=== PATIENT | female | born 1955 | race Caucasian/White ===

== ENCOUNTER 2016-08-01 08:33 | Emergency (ER) | payer BC ==
[~2016-08-01] VITALS: Ht 167.6 cm; Wt 113.5 kg
[~2016-08-01 08:33] MED LIST: ALPR0.5T78 PO; ASPI-611 PO; FISH1CAP29 PO; NADO20TA PO
[2016-08-01 08:35] VITALS: Ht 167.6 cm; Wt 113.5 kg
--- OUTSIDE RECORDS SUMMARY | 2016-08-01 08:37 | XMS REPORT | Referral Summary ---
Author Author [facility], [facility] Organization [facility] Address Unknown Phone Unavailable Care Team Providers Care Aboriginal Liaison Officer Name Role Phone Xiomara Cabrales Primary Care Physician [phone] Encounter VC Date(s): 01/15/16 - 01/15/16 [facility], [address] [place] [address]- Discharge Disposition: 01-Home or Self Care Attending Physician: Marcy Cabrales DO Admitting Physician: Marcy Cabrales DO Vital Signs Most recent to 1 oldest [Reference Range]: Temperature Tympanic 36.9 degC [36.6-38.1 degC] (01/15/16 10:23 AM) Peripheral Pulse 65 bpm Rate [60-100 bpm] (01/15/16 10:23 AM) Respiratory Rate 16 br/min [14-20 br/min] (01/15/16 10:23 AM) Blood Pressure 138/78 mmHg [90-140/60-90 mmHg] (01/15/16 10:23 AM) SpO2 98 % (01/15/16 10:23 AM) Problem List Condition Effective Dates Status Health Status Informant Abnormal Pap smear Active of cervix(Confirmed) Anemia(Confirmed) Resolved Anxiety(Confirmed) Active Diabetes(Confirmed)1 Resolved Hip fracture, Active right(Confirmed) Hypertension(Confirm Resolved ed) Inappropriate sinus Active tachycardia(Confirme d) Incomplete Active RBBB(Confirmed) Irregular heart Resolved rhythm(Confirmed) Mammogram abnormal, Active unspecified(Confirme d) Morbid Active patient obesity(Confirmed) Obesity(Confirmed) Active patient Osteoarthritis(Confi Resolved rmed) 1type 2 Allergies, Adverse Reactions, Alerts No Known Medication Allergies Medications aspirin 81 mg oral tablet 2 tabs, Oral, Daily, # 30 tabs, 0 Refill(s) Start Date: 10/27/13 Status: Ordered CONTOUR TEST STRIPS CONTOUR TEST STRIPS, See Instructions, Check blood sugar two times a day. DX: E11.9, # 100 Each, 0 Refill(s), Pharmacy: [facility] #[id number], Check blood sugar two times a day. DX: E11.9 Start Date: 12/13/15 Status: Ordered Glucometer strips (DME) DME Item Contour Art One Test Strips - check blood sugar BID. DX: 250.00, See Instructions, # 100 Each, 0 Refill(s), Pharmacy: [facility] #[id number], Contour Art One Test Strips - check blood sugar BID. DX: 250.00, Supply Start Date: 06/27/14 Status: Ordered metFORMIN 500 mg oral tablet, extended release See Instructions, TAKE ONE TABLET BY MOUTH DAILY WITH EVENING MEAL., # 90 tabs, eRx: [facility] #[id number], TAKE ONE TABLET BY MOUTH DAILY WITH EVENING MEAL. Start Date: 11/29/15 Status: Ordered Miscellaneous DME DME Item Art Contour Blood Glucose Monitoring System, See Instructions, # 1 Each, 0 Refill(s), Supply Start Date: 06/27/14 Status: Ordered nadolol 20 mg oral tablet See Instructions, TAKE ONE TABLET BY MOUTH EVERY DAY, # 30 tabs, 4 Refill(s), eRx: [facility] #[id number], TAKE ONE TABLET BY MOUTH EVERY DAY Start Date: 04/16/15 Status: Ordered Saxenda 18 mg/3 mL subcutaneous solution 0.6 mg, SubCutaneous, Daily, # 15 mL, 0 Refill(s), samples given to patient (Rx) Start Date: 01/15/16 Status: Ordered Xanax 0.5 mg oral tablet See Instructions, as needed for anxiety, Take 1-2 tablets daily as needed., # 30 tabs, 0 Refill(s) Start Date: 05/29/15 Status: Ordered Results Chemistry Most recent to 1 oldest [Reference Range]: Sodium Lvl [135-144 141 mEq/L mEq/L] (01/15/16 11:33 AM) Potassium Lvl 5.0 mEq/L [3.5-5.2 mEq/L] (01/15/16 11:33 AM) Chloride [99-111 107 mEq/L mEq/L] (01/15/16 11:33 AM) CO2 [22-31 mEq/L] 28 mEq/L (01/15/16 11:33 AM) AGAP [3-20] 6 (01/15/16 11:33 AM) BUN [10-20 mg/dL] 20 mg/dL (01/15/16 11:33 AM) Glucose Lvl [70-99 128 mg/dL mg/dL] *HI* (01/15/16 11:33 AM) Creatinine Lvl 0.75 mg/dL [0.57-1.11 mg/dL] (01/15/16 11:33 AM) eGFR [>60 mL/min] >60 mL/min 1 (01/15/16 11:33 AM) Calcium Lvl 9.2 mg/dL [8.9-10.5 mg/dL] (01/15/16 11:33 AM) Chol [0-199 mg/dL] 175 mg/dL (01/15/16 11:33 AM) Trig [0-149 mg/dL] 86 mg/dL (01/15/16 11:33 AM) HDL [40-84 mg/dL] 44 mg/dL (01/15/16 11:33 AM) LDL [0-130 mg/dL] 114 mg/dL (01/15/16 11:33 AM) VLDL Cholesterol 17 mg/dL [0-28 mg/dL] (01/15/16 11:33 AM) Cardiac Risk 4.0 [0.0-5.0] (01/15/16 11:33 AM) Hgb A1c [4.1-5.6 %] 5.8 % *HI* (01/15/16 11:33 AM) eAvg Glucose 119.8 mg/dL (01/15/16 11:33 AM) 1Result Comment: Multiply eGFR results by 1.21 for race. Immunizations Vaccine Date Refusal Reason influenza virus vaccine, inactivated 01/15/16 influenza virus vaccine, inactivated 03/01/15 influenza virus vaccine, inactivated1 03/02/14 influenza virus vaccine, live 02/25/13 tetanus/diphtheria/pertussis, acel(Tdap) 06/01/12 tetanus-diphth toxoids (Td) adult/adol 11/27/97 zoster vaccine live 06/07/14 1Result Comment: [03/02/2014] See Scanned Document Procedures Procedure Date Related Diagnosis Body Site Pap smear, as part of routine gynecological 06/12/15 examination1 Mammogram 06/11/15 D&C - Dilatation and curettage 2013 Hysteroscopy 2013 Colonoscopy2, 3 08/06/07 Hemiarthroplasty of head of humerus4 2005 Knee replacement5 2003 Laser surgery6 1995 Cholecystectomy 1991 Tubal ligation7 1978 delivery8 1had repeat PAP on 11-19-12 due to previous abnormal PAP 2repeat in 10 [id number] 3colonoscopy w/cancer surveillance showing no evidence for angiodysplastic lesions, polyps, diverticula, or malignancies. 4right [place] 5left 6left eye - retinal hole 7bilateral 8x2 Social History Social History Type Response Smoking Status Former smoker; Type: Cigarettes Assessment and Plan Extracted from: Title: Ambulatory Patient Education Author: Marcy Cabrales DO Date: Home Health Care Tips for Eating Away From Home If You Have Diabetes Controlling your level of blood glucose, also known as blood sugar, can be challenging. It can be even more difficult when you do not prepare your own meals. The following tips can help you manage your diabetes when you eat away from home. PLANNING AHEAD Plan ahead if you know you will be eating away from home: Ask your health care provider how to time meals and medicine if you are taking insulin. Make a list of restaurants near you that offer healthy choices. If they have a carry-out menu, take it home and plan what you will order ahead of time. Look up the restaurant you want to eat at online. Many chain and fast- food restaurants list nutritional information online. Use this information to choose the healthiest options and to calculate how many carbohydrates will be in your meal. Use a carbohydrate-counting book or mobile alhaji to look up the carbohydrate content and serving size of the foods you want to eat. Become familiar with serving sizes and learn to recognize how many servings are in a portion. This will allow you to estimate how many carbohydrates you can eat. FREE FOODS A "free food" is any food or drink that has less than 5 g of carbohydrates per serving. Free foods include: Many vegetables. Hard boiled eggs. Nuts or seeds. Olives. Cheeses. Meats. These types of foods make good appetizer choices and are often available at salad bars. Lemon juice, vinegar, or a low-calorie salad dressing of fewer than 20 calories per serving can be used as a "free" salad dressing. CHOICES TO REDUCE CARBOHYDRATES Substitute nonfat sweetened yogurt with a sugar-free yogurt. Yogurt made from soy milk may also be used, but you will still want a sugar-free or plain option to choose a lower carbohydrate amount. Ask your sql server consultant to take away the bread basket or chips from your table. Order fresh fruit. A salad bar often offers fresh fruit choices. Avoid canned fruit because it is usually packed in sugar or syrup. Order a salad, and eat it without dressing. Or, create a "free" salad dressing. Ask for substitutions. For example, instead of [place] fries, request an order of a vegetable such as salad, green beans, or broccoli. OTHER TIPS If you take insulin, take the insulin once your food arrives to your table. This will ensure your insulin and food are timed correctly. Ask your sql server consultant about the portion size before your order, and ask for a take-out box if the portion has more servings than you should have. When your food comes, leave the amount you should have on the plate, and put the rest in the take-out box. Consider splitting an entre with someone and ordering a side salad. This information is not intended to replace advice given to you by your health care provider. Make sure you discuss any questions you have with your health care provider. Document Released: 04/06/2006 Document Revised: 04/27/2015 Document Reviewed: [facility] Patient Information 2016 [facility]. No follow up information was provided. Extracted from: Title: Office Visit Note Author: Marcy Cabrales DO Date: 01/15/16 Assessment/Plan Diabetes BMP and A1c today with further recommendations after results. Ordered: Basic Metabolic Panel Hemoglobin A1c Office Visit Level 4 Est 08802 Immunization due Flu shot provided today. Ordered: Office Visit Level 4 Est 22691 Obesity Long discussion today about options for weight management. Ultimately with patient's blood sugar is seeming to jossue little bit higher than they have been in the past and with her concerns we'll go ahead and start on some Saxenda. She will start on the dose of 0.6 mg and she'll return to clinic in1 month. If she is not losing weight on the 0.6 mg and tolerating it well after a week or 2 she can call us and we will increase it to 1.2 mg. We had also discussed the potential for Wellbutrin but patient would like to try this first. Ordered: Lipid Panel Office Visit Level 4 Est 41331
--- OUTSIDE RECORDS SUMMARY | 2016-08-01 08:37 | XMS REPORT | Referral Summary ---
Author Author [facility], [facility] Organization [facility] Address Unknown Phone Unavailable Care Team Providers Care Ware Carrier Name Role Phone Xiomara Cabrales Primary Care Physician [phone] Encounter VC Date(s): 04/23/16 - 04/23/16 [facility], [address] [place] [address]- Discharge Diagnosis: Cough due to SADA inhibitor Discharge Diagnosis: Hypertension Discharge Diagnosis: Diabetes Discharge Disposition: 01-Home or Self Care Attending Physician: Marcy Cabrales DO Admitting Physician: Marcy Cabrales DO Vital Signs Most recent to 1 oldest [Reference Range]: Temperature Tympanic 36.8 degC [36.6-38.1 degC] (04/23/16 3:31 PM) Peripheral Pulse 82 bpm Rate [60-100 bpm] (04/23/16 3:31 PM) Blood Pressure 130/84 mmHg [90-140/60-90 mmHg] (04/23/16 3:31 PM) SpO2 99 % (04/23/16 3:31 PM) Problem List Condition Effective Dates Status Health Status Informant Abnormal Pap smear Active of cervix(Confirmed) Anemia(Confirmed) Resolved Anxiety(Confirmed) Active Diabetes(Confirmed)1 Resolved Cough due to SADA Active inhibitor(Confirmed) Hip fracture, Active right(Confirmed) Hypertension(Confirm Resolved ed) [...] E11.9, # 100 Each, 0 Refill(s), Pharmacy: [facility] #[id number], Check blood sugar two times a day. DX: E11.9 Start Date: 12/13/15 Status: Ordered losartan 25 mg oral tablet 25 mg 1 tabs, Oral, Daily, # 30 tabs, 1 Refill(s), Pharmacy: [facility] # [id number], 1 tabs Oral Daily Start Date: 04/23/16 Status: Ordered metFORMIN 500 mg oral tablet, extended release See Instructions, TAKE ONE TABLET BY MOUTH DAILY WITH EVENING MEAL., # 90 tabs, eRx: [facility] #[id number], TAKE ONE TABLET BY MOUTH DAILY WITH EVENING MEAL. Start Date: 02/20/16 Status: Ordered nadolol 20 mg oral tablet 10 mg 0.5 tabs, Oral, Daily, # 15 tabs, 11 Refill(s), Pharmacy: [facility] #[id number], 0.5 tabs Oral Daily Start Date: 04/01/16 Status: Ordered Results No data available for this section Immunizations Given and Recorded Vaccine Date Status Refusal Reason influenza virus vaccine, inactivated 01/15/16 Given influenza virus vaccine, inactivated 03/01/15 Given influenza virus vaccine, inactivated1 03/02/14 Recorded influenza virus vaccine, live 02/25/13 Given tetanus/diphtheria/pertussis, acel(Tdap) 06/01/12 Recorded tetanus-diphth toxoids (Td) adult/adol 11/27/97 Given zoster vaccine live 06/07/14 Given 1Result Comment: [03/02/2014] See Scanned Document Procedures Procedure Date Related Diagnosis Body Site Pap smear, as part of routine gynecological 06/12/15 examination1 Mammogram 06/11/15 D&C - Dilatation and curettage 2013 Hysteroscopy 2013 Colonoscopy2, 3 08/06/07 Hemiarthroplasty of head of humerus4 2005 Knee replacement5 2003 Laser surgery6 1995 Cholecystectomy 1991 Tubal ligation7 1979 delivery8 1had repeat PAP on 11-19-12 due to previous abnormal PAP 2repeat in 10 [id number] 3colonoscopy w/cancer surveillance showing no evidence for angiodysplastic lesions, polyps, diverticula, or malignancies. 4right [place] 5left 6left eye - retinal hole 7bilateral 8x2 Social History Social History Type Response Smoking Status Former smoker; Type: Cigarettes Assessment and Plan Extracted from: Title: Office Visit Note Author: Marcy Cabrales DO Date: 04/23/16 Assessment/Plan Cough due to SADA inhibitor We will avoid starting patient on SADA inhibitor. Ordered: Office Visit Level 4 Est 26875 Diabetes Given patient's history of diabetes it would be a good idea to choose an angiogram tension receptor juan manuel for renal protection. Ordered: Office Visit Level 4 Est 41742 Hypertension Since patient had responded well to SADA inhibitor in the past other than having side effects and given patient's history of diabetes along with the readings that she brings from both home and the office we'll go ahead and start the patient on a low dose of losartan. We'll plan on having her return to clinic in 4-6 weeks for reevaluation. We did talk about lifestyle changes as well as exercise and what he can do toher blood pressuresthrough these measures. We did discuss that if she canlower her blood pressures through these measures we can certainly remove medications if needed. Ordered: Office Visit Level 4 Est 58044
--- OUTSIDE RECORDS SUMMARY | 2016-08-01 08:37 | XMS REPORT | Referral Summary ---
Author Author [facility] Organization [facility] Address Unknown Phone Unavailable Care Team Providers Care Ethernet Network Architect Name Role Phone Isrrael Timmons Primary Care Physician [phone] Encounter Date(s): 03/01/15 - 03/01/15 [facility] [address] [place], [place] [address] Discharge Diagnosis: Inappropriate sinus tachycardia Discharge Diagnosis: Incomplete RBBB Discharge Disposition: 01-Home or Self Care Attending Physician: Bridger Alves MD Admitting Physician: Bridger Alves MD Referring Physician: Joe Timmons MD Vital Signs Most recent to 1 oldest [Reference Range]: Peripheral Pulse 60 bpm Rate [60-100 bpm] (03/01/15 8:11 AM) Blood Pressure 122/80 mmHg [90-140/60-90 mmHg] (03/01/15 8:11 AM) Problem List Condition Effective Dates Status Health Status Informant Abnormal Pap smear Active of cervix(Confirmed) Anemia(Confirmed) Resolved Diabetes(Confirmed)1 Resolved Hip fracture, Active right(Confirmed) Hypertension(Confirm [...] Date: 10/27/13 Status: Ordered CONTOUR TEST STRIPS See Instructions, CHECK SUGARS TWO TIMES A DAY, # 100 strip, eRx: [facility] #[id number], CHECK SUGARS TWO TIMES A DAY Start Date: 11/06/14 Status: Ordered Glucometer strips (DME) DME Item Contour Art One Test Strips - check blood sugar BID. DX: 250.00, See Instructions, # 100 Each, 0 Refill(s), Pharmacy: [facility] #[id number], Contour Art One Test Strips - check blood sugar BID. DX: 250.00, Supply Start Date: 06/27/14 Status: Ordered metFORMIN 500 mg oral tablet, extended release See Instructions, TAKE ONE TABLET BY MOUTH DAILY WITH EVENING MEAL., # 30 tabs, eRx: [facility] #[id number], TAKE ONE TABLET BY MOUTH DAILY WITH EVENING MEAL. Start Date: 02/14/15 Status: Ordered Miscellaneous DME DME Item Art Contour Blood Glucose Monitoring System, See Instructions, # 1 Each, 0 Refill(s), Supply Start Date: 06/27/14 Status: Ordered nadolol 20 mg oral tablet See Instructions, TAKE ONE-HALF TABLET BY MOUTH EVERY DAY, # 30 tabs, 5 Refill(s ), eRx: [facility] #[id number], TAKE ONE TABLET BY MOUTH EVERY DAY Start Date: 05/24/14 Status: Ordered Xanax 0.5 mg oral tablet See Instructions, as needed for anxiety, Take 1-2 tablets daily as needed., # 30 tabs, 0 Refill(s) Start Date: 06/07/14 Status: Ordered Results No data available for this section Immunizations Vaccine Date Refusal Reason influenza virus vaccine, inactivated 03/01/15 influenza virus vaccine, inactivated1 03/02/14 influenza virus vaccine, live 02/25/13 tetanus/diphtheria/pertussis, acel(Tdap) 06/01/12 tetanus-diphth toxoids (Td) adult/adol 11/27/97 zoster vaccine live 06/07/14 1Result Comment: [03/02/2014] See Scanned Document Procedures Procedure Date Related Diagnosis Body Site Pap smear, as part of routine gynecological 05/19/12 examination1 D&C - Dilatation and curettage 2012 Hysteroscopy 2013 Colonoscopy2, 3 08/06/07 Hemiarthroplasty of head of humerus4 2005 Knee replacement5 2003 Laser surgery6 1995 Cholecystectomy 1991 Tubal ligation7 1979 delivery8 1had repeat PAP on 11-19-12 due to previous abnormal PAP 2repeat in 10 [id number] 3colonoscopy w/cancer surveillance showing no evidence for angiodysplastic lesions, polyps, diverticula, or malignancies. 4right [place] 5left 6left eye - retinal hole 7bilateral 8x2 Social History Social History Type Response Smoking Status Former smoker; Type: Cigarettes Assessment and Plan Extracted from: Title: Office Visit Note Author: Bridger Alves MD Date: 03/01/15 Assessment/Plan Inappropriate sinus tachycardia Ordered: EKG with Interpretation 94314 Office Visit Level 3 Est 49225 Return to Clinic Incomplete RBBB Referrals to Other Providers Referred by: Bridger Alves MD
--- OUTSIDE RECORDS SUMMARY | 2016-08-01 08:37 | XMS REPORT | Referral Summary ---
Author Author [facility] Organization [facility] Address Unknown Phone Unavailable Care Team Providers Care Professor Of Theater Name Role Phone Xiomara Cabrales Primary Care Physician [phone] Encounter Date(s): 03/18/16 - 03/18/16 [facility] [address] [place], [place] [address] Discharge Diagnosis: Anxiety Discharge Diagnosis: Inappropriate sinus tachycardia Discharge Disposition: 01-Home or Self Care Attending Physician: Bridger Alves MD Admitting Physician: Bridger Alves MD Vital Signs Most recent to 1 oldest [Reference Range]: Peripheral Pulse 74 bpm Rate [60-100 bpm] (03/18/16 2:25 PM) Blood Pressure 132/74 mmHg [90-140/60-90 mmHg] (03/18/16 2:25 PM) Problem List Condition Effective Dates Status [...] E11.9, # 100 Each, 0 Refill(s), Pharmacy: [facility] #[id number], Check blood sugar two times a day. DX: E11.9 Start Date: 12/13/15 Status: Ordered metFORMIN 500 mg oral tablet, extended release See Instructions, TAKE ONE TABLET BY MOUTH DAILY WITH EVENING MEAL., # 90 tabs, eRx: [facility] #[id number], TAKE ONE TABLET BY MOUTH DAILY WITH EVENING MEAL. Start Date: 02/20/16 Status: Ordered nadolol 20 mg oral tablet 10 mg 0.5 tabs, Oral, Daily, 0 Refill(s) Start Date: 03/18/16 Status: Ordered Results No data available for [...] to previous abnormal PAP 2repeat in 10 [id number] 3colonoscopy w/cancer surveillance showing no evidence for angiodysplastic lesions, polyps, diverticula, or malignancies. 4right [place] 5left 6left eye - retinal hole 7bilateral 8x2 Social History Social History Type Response Smoking Status Former smoker; Type: Cigarettes Assessment and Plan Referrals to Other Providers Referred by: Bridger Alves MD
--- OUTSIDE RECORDS SUMMARY | 2016-08-01 08:37 | XMS REPORT | Referral Summary ---
Author Organization Unknown Address Unknown Phone Unavailable Care Team Providers Care Wholesale Loan Processor Name Role Phone Isrrael Timmons Primary Care Physician [phone] Encounter VC Date(s): 06/27/14 - 06/27/14 [facility], Luis Armando, Internal Medicine [address] [place] [address] Dr Durán [place] [id number] Discharge Diagnosis: Diabetes Discharge Diagnosis: Essential hypertension Discharge Diagnosis: Hyperkalemia Discharge Disposition: Home or Self Care Attending Physician: Joe Timmons MD Admitting Physician: Joe Timmons MD Vital Signs Most recent to 1 oldest [Reference Range]: Temperature Oral 37.1 degC [35.8-37.3 degC] (06/27/14 4:04 PM) Peripheral Pulse 73 bpm Rate [60-100 bpm] (06/27/14 4:04 PM) Respiratory Rate 18 br/min [14-20 br/min] (06/27/14 4:04 PM) Blood Pressure 120/81 mmHg [90-140/60-90 mmHg] (06/27/14 4:04 PM) Most recent to 1 oldest [Reference Range]: SpO2 97 % (06/27/14 4:04 PM) Problem List Condition Effective Dates Status Health Status Informant Abnormal Pap smear Active of cervix(Confirmed) Anemia(Confirmed) Resolved Diabetes(Confirmed)1 Resolved Hip fracture, Active right(Confirmed) Hypertension(Confirm Resolved ed) Inappropriate sinus Active tachycardia(Confirme d) Incomplete Active RBBB(Confirmed) Irregular heart Resolved rhythm(Confirmed) Mammogram abnormal, Active unspecified(Confirme d) Morbid Active patient obesity(Confirmed) Osteoarthritis(Confi Resolved rmed) 1type 2 Allergies, Adverse Reactions, Alerts No Known Medication Allergies Medications aspirin 81 mg oral tablet 2 tabs, Oral, Daily, # 30 tabs, 0 Refill(s) Start Date: 10/27/13 Status: Ordered Glucometer strips (DME) DME Item Contour Art One Test Strips - check blood sugar BID. DX: 250.00, See Instructions, # 100 Each, 0 Refill(s), Pharmacy: [facility] #[id number], Contour Art One Test Strips - check blood sugar BID. DX: 250.00, Supply Special Instructions: Contour Art One Test Strips - check blood sugar BID. DX : 250.00 Start Date: 06/27/14 Status: Ordered Miscellaneous DME DME Item Art Contour Blood Glucose Monitoring System, See Instructions, # 1 Each, 0 Refill(s), Supply Special Instructions: Art Contour Blood Glucose Monitoring System Start Date: 06/27/14 Status: Ordered nadolol 20 mg oral tablet See Instructions, TAKE ONE-HALF TABLET BY MOUTH EVERY DAY, # 30 tabs, 5 Refill(s ), eRx: [facility] #[id number], TAKE ONE TABLET BY MOUTH EVERY DAY Special Instructions: TAKE ONE-HALF TABLET BY MOUTH EVERY DAY Start Date: 05/24/14 Status: Ordered Xanax 0.5 mg oral tablet See Instructions, as needed for anxiety, Take 1-2 tablets daily as needed., # 30 tabs, 0 Refill(s) Special Instructions: Take 1-2 tablets daily as needed. Start Date: 06/07/14 Status: Ordered Results No data available for this section Immunizations Vaccine Date Refusal Reason influenza virus vaccine, inactivated1 03/02/14 influenza virus vaccine, live 02/25/13 tetanus/diphtheria/pertussis, acel(Tdap) 06/01/12 tetanus-diphth toxoids (Td) adult/adol 11/27/97 zoster vaccine live 06/07/14 1Result Comment: [03/02/2014] See Scanned Document Procedures Procedure Date Related Diagnosis Body Site Pap smear, as part of routine gynecological 05/19/12 examination1 D&C - Dilatation and curettage 2013 Hysteroscopy 2013 Colonoscopy2, 3 08/06/07 Hemiarthroplasty of head of humerus4 2005 Knee replacement5 2003 Laser surgery6 1995 Cholecystectomy 1991 Tubal ligation7 1979 delivery8 1had repeat PAP on 11-19-12 due to previous abnormal PAP 2repeat in 10 [id number] 3colonoscopy w/cancer surveillance showing no evidence for angiodysplastic lesions, polyps, diverticula, or malignancies. 4right [place] 5left 6left eye - retinal hole 7bilateral 8x2 Social History Social History Type Response Smoking Status Former smoker; Type: Cigarettes Assessment and Plan Extracted from: Title: Ambulatory Patient Education Author: Joe Timmons MD Date: 02/01 Family Medicine Hyperkalemia Hyperkalemia is when you have too much potassium in your blood. This can be a life-threatening condition. Potassium is normally removed (excreted ) from the body by the kidneys. CAUSES The potassium level in your body can become too high for the following reasons: You take in too much potassium. You can do this by: Using salt substitutes. They contain large amounts of potassium. Taking potassium supplements from your caregiver. The dose may be too high for you. Eating foods or taking nutritional products with potassium. You excrete too little potassium. This can happen if: Your kidneys are not functioning properly. Kidney (renal ) disease is a very common cause of hyperkalemia. You are taking medicines that lower your excretion of potassium, such as certain diuretic medicines. You have an adrenal gland disease called Felipe's disease. You have a urinary tract obstruction, such as kidney stones. You are on treatment to mechanically clean your blood (dialysis ) and you skip a treatment. You release a high amount of potassium from your cells into your blood. You may have a condition that causes potassium to move from your cells to your bloodstream. This can happen with: Injury to muscles or other tissues. Most potassium is stored in the muscles. Severe leos or infections. Acidic blood plasma (acidosis ). Acidosis can result from many diseases, such as uncontrolled diabetes. SYMPTOMS Usually, there are no symptoms unless the potassium is dangerously high or has risen very quickly. Symptoms may include: Irregular or very slow heartbeat. Feeling sick to your stomach (nauseous ). Tiredness (fatigue ). Nerve problems such as tingling of the skin, numbness of the hands or feet , weakness, or paralysis. DIAGNOSIS A simple blood test can measure the amount of potassium in your body. An electrocardiogram test of the heart can also help make the diagnosis. The heart may beat dangerously fast or slow down and stop beating with severe hyperkalemia. TREATMENT Treatment depends on how bad the condition is and on the underlying cause. If the hyperkalemia is an emergency (causing heart problems or paralysis), many different medicines can be used alone or together to lower the potassium level briefly. This may include an insulin injection even if you are not diabetic. Emergency dialysis may be needed to remove potassium from the body. If the hyperkalemia is less severe or dangerous, the underlying cause is treated. This can include taking medicines if needed. Your prescription medicines may be changed. You may also need to take a medicine to help your body get rid of potassium. You may need to eat a diet low in potassium. HOME CARE INSTRUCTIONS Take medicines and supplements as directed by your caregiver. Do not take any hpvw-xix-lmamdfj medicines, supplements, natural products, herbs, or vitamins without reviewing them with your caregiver. Certain supplements and natural food products can have high amounts of potassium. Other products (such as ibuprofen) can damage weak kidneys and raise your potassium. You may be asked to do repeat lab tests. Be sure to follow these directions. If you have kidney disease, you may need to follow a low potassium diet. SEEK MEDICAL CARE IF: You notice an irregular or very slow heartbeat. You feel lightheaded. You develop weakness that is unusual for you. SEEK IMMEDIATE MEDICAL CARE IF: You have shortness of breath. You have chest discomfort. You pass out (faint ). MAKE SURE YOU: Understand these instructions. Will watch your condition. Will get help right away if you are not doing well or get worse. Document Released: 03/27/2003 Document Revised: 06/28/2012 Document Reviewed: [facility] Patient Information 2014 [employer]. Follow Up With: Where: When: Joe Timmons [address] [place] [address] Drive; [address] [place], [place] [id number] Business (1) In 4 months 10/27/2014 Comments: Extracted from: Title: Office Visit Note Author: Joe Timmons MD Date: 06/27/14 Assessment/Plan Diabetes She was encouraged to continue her efforts to lose weight. She will continue her same medication. Ordered: Office Visit Level 4 Est 14315 Essential hypertension This is well controlled. She will continue her same medication. Ordered: Office Visit Level 4 Est 88473 Hyperkalemia This may be secondary to the lab error due to hemolysis. Her level will be rechecked later. Ordered: Office Visit Level 4 Est 11758 Orders: Durable Medical Equipment Rx, DME Item Contour Art One Test Strips - check blood sugar BID. DX: 250.00, See Instructions, # 100 Each, 0 Refill(s), Pharmacy: [facility] #[id number], Contour Art One Test Strips - check blood sugar BID. DX: 250.00, Supply Durable Medical Equipment Rx, DME Item Art Contour Blood Glucose Monitoring System, See Instructions, # 1 Each, 0 Refill(s), Supply
--- OUTSIDE RECORDS SUMMARY | 2016-08-01 08:37 | XMS REPORT | Referral Summary ---
Author Author [facility], Internal Medicine Organization [facility], Internal Medicine Address Unknown Phone Unavailable Care Team Providers Care Mucking Machine Operator Name Role Phone Isrrael Timmons Primary Care Physician [phone] Encounter VC Date(s): 08/30/14 - 08/30/14 [facility], Internal Medicine [address] [place] [address] [place] [address] Discharge Diagnosis: Diabetes Discharge Diagnosis: Obesity (BMI 30-39.9) Discharge Diagnosis: Essential hypertension Discharge Disposition: 01-Home or Self Care Attending Physician: Joe Timmons MD Admitting Physician: Joe Timmons MD Vital Signs Most recent to 1 oldest [Reference Range]: Temperature Tympanic 36.9 degC [36.6-38.1 degC] (08/30/14 4:16 PM) Peripheral Pulse 61 bpm Rate [60-100 bpm] (08/30/14 4:16 PM) Blood Pressure 118/80 mmHg [90-140/60-90 mmHg] (08/30/14 4:16 PM) SpO2 98 % (08/30/14 4:16 PM) Problem List Condition Effective Dates Status [...] TIMES A DAY, # 100 strip, eRx: [facility] #[id number], CHECK SUGARS TWO TIMES A DAY Start Date: 11/06/14 Status: Ordered Glucometer strips (DME) DME Item Contour Art One Test Strips - check blood sugar BID. DX: 250.00, See Instructions, # 100 Each, 0 Refill(s), Pharmacy: [facility] #[id number], Contour Art One Test Strips - check blood sugar BID. DX: 250.00, Supply Start Date: 06/27/14 Status: Ordered metFORMIN 500 mg oral tablet, extended release See Instructions, TAKE ONE TABLET BY MOUTH DAILY WITH EVENING MEAL., # 30 tabs, eRx: [facility] #[id number], TAKE ONE TABLET BY MOUTH DAILY WITH EVENING MEAL. Start Date: 02/14/15 Status: Ordered Miscellaneous DME DME Item Art Contour Blood Glucose Monitoring System, See Instructions, # 1 Each, 0 Refill(s), Supply Start Date: 06/27/14 Status: Ordered nadolol 20 mg oral tablet See Instructions, TAKE ONE-HALF TABLET BY MOUTH EVERY DAY, # 30 tabs, 5 Refill(s ), eRx: [facility] #[id number], TAKE ONE TABLET BY MOUTH EVERY DAY [...] to previous abnormal PAP 2repeat in 10 [id number] 3colonoscopy w/cancer surveillance showing no evidence for angiodysplastic lesions, polyps, diverticula, or malignancies. 4right [place] 5left 6left eye - retinal hole 7bilateral 8x2 Social History Social History Type Response Smoking Status Former smoker; Type: Cigarettes Assessment and Plan Extracted from: Title: Ambulatory Patient Education Author: Joe Timmons MD Date: Family Medicine Diabetes and Exercise Exercising regularly is important. It is not just about losing weight. It has many health benefits, such as: Improving your overall fitness, flexibility, and endurance. Increasing your bone density. Helping with weight control. Decreasing your body fat. Increasing your muscle strength. Reducing stress and tension. Improving your overall health. People with diabetes who exercise gain additional benefits because exercise: Reduces appetite. Improves the body's use of blood sugar (glucose ). Helps lower or control blood glucose. Decreases blood pressure. Helps control blood lipids (such as cholesterol and triglycerides). Improves the body's use of the hormone insulin by: Increasing the body's insulin sensitivity. Reducing the body's insulin needs. Decreases the risk for heart disease because exercising: Lowers cholesterol and triglycerides levels. Increases the levels of good cholesterol (such as high-density lipoproteins [HDL]) in the body. Lowers blood glucose levels. YOUR ACTIVITY PLAN Choose an activity that you enjoy and set realistic goals. Your health care provider or development educator can help you make an activity plan that works for you. You can break activities into 2 or 3 sessions throughout the day. Doing so is as good as one long session. Exercise ideas include: Taking the dog for a walk. Taking the stairs instead of the elevator. Dancing to your favorite song. Doing your favorite exercise with a friend. RECOMMENDATIONS FOR EXERCISING WITH TYPE 1 OR TYPE 2 DIABETES Check your blood glucose before exercising. If blood glucose levels are greater than 240 mg/dL, check for urine ketones. Do not exercise if ketones are present. Avoid injecting insulin into areas of the body that are going to be exercised. For example, avoid injecting insulin into: The arms when playing tennis. The legs when jogging. Keep a record of: Food intake before and after you exercise. Expected peak times of insulin action. Blood glucose levels before and after you exercise. The type and amount of exercise you have done. Review your records with your health care provider. Your health care provider will help you to develop guidelines for adjusting food intake and insulin amounts before and after exercising. If you take insulin or oral hypoglycemic agents, watch for signs and symptoms of hypoglycemia. They include: Dizziness. Shaking. Sweating. Chills. Confusion. Drink plenty of water while you exercise to prevent dehydration or heat stroke. Body water is lost during exercise and must be replaced. Talk to your health care provider before starting an exercise program to make sure it is safe for you. Remember, almost any type of activity is better than none. Document Released: 06/26/2004 Document Revised: 12/07/2013 Document Reviewed: [facility] [place] Patient Information 2014 [employer]. Follow Up With: Where: When: Joe Timmons [address] [place] [address] Drive; Via [facility] [place] Durán [phone] Business (1) In 4 months 12/31/2014 Comments: Extracted from: Title: Office Visit Note Author: Joe Timmons MD Date: 08/30/14 Assessment/Plan Diabetes She will be started on extended-release metformin 500 mg at supper. Ordered: Office Visit Level 4 Est 35088 Essential hypertension She will continue her same medication. Ordered: Office Visit Level 4 Est 71354 Obesity (BMI 30-39.9) She will continue her efforts to reduce her weight. Ordered: Office Visit Level 4 Est 84100 Orders: metFORMIN, 500 mg 1 tabs, Oral, Daily, with evening meal, # 30 tabs, 1 Refill(s), Pharmacy: [facility] #[id number], 1 tabs Oral Daily,Instr:with evening meal
--- OUTSIDE RECORDS SUMMARY | 2016-08-01 08:37 | XMS REPORT | Referral Summary ---
Author Author [facility], Family Medicine Organization [facility] Address Unknown Phone Unavailable Care Team Providers Care Credit Processor Name Role Phone Xiomara Cabrales Primary Care Physician [phone] Encounter VC Date(s): 06/12/15 - 06/12/15 [facility] Mckeon [place], Family [address] [place] [address]- Discharge Diagnosis: Well woman exam with routine gynecological exam Discharge Disposition: 01-Home or Self Care Attending Physician: Cheryl Vargas APRN Admitting Physician: Cheryl Vargas APRN Vital Signs Most recent to 1 oldest [Reference Range]: Peripheral Pulse 82 bpm Rate [60-100 bpm] (06/12/15 8:55 AM) Blood Pressure 116/72 mmHg [90-140/60-90 mmHg] (06/12/15 8:55 AM) Problem List Condition Effective Dates Status [...] TIMES A DAY, # 100 strip, eRx: [facility] #[id number], CHECK SUGARS TWO TIMES A DAY Start Date: 11/06/14 Status: Ordered Glucometer strips (DME) DME Item Contour Art One Test Strips - check blood sugar BID. DX: 250.00, See Instructions, # 100 Each, 0 Refill(s), Pharmacy: [facility] #[id number], Contour Art One Test Strips - check blood sugar BID. DX: 250.00, Supply Start Date: 06/27/14 Status: Ordered metFORMIN 500 mg oral tablet, extended release See Instructions, TAKE ONE TABLET BY MOUTH DAILY, WITH EVENING MEAL, # 90 tabs, 1 Refill(s), Pharmacy: [facility] #[id number], TAKE ONE TABLET BY MOUTH DAILY , WITH EVENING MEAL Start Date: 05/29/15 Status: Ordered Miscellaneous DME DME Item Art Contour Blood Glucose Monitoring System, See Instructions, # 1 Each, 0 Refill(s), Supply Start Date: 06/27/14 Status: Ordered nadolol 20 mg oral tablet See Instructions, TAKE ONE TABLET BY MOUTH EVERY DAY, # 30 tabs, 4 Refill(s), eRx: [facility] #[id number], TAKE ONE TABLET BY MOUTH EVERY DAY Start Date: 04/16/15 Status: Ordered Xanax 0.5 mg oral tablet See Instructions, as needed for anxiety, Take 1-2 tablets daily as needed., # 30 tabs, 0 Refill(s) Start Date: 05/29/15 Status: Ordered Results No data available for [...] to previous abnormal PAP 2repeat in 10 [id number] 3colonoscopy w/cancer surveillance showing no evidence for angiodysplastic lesions, polyps, diverticula, or malignancies. 4right [place] 5left 6left eye - retinal hole 7bilateral 8x2 Social History Social History Type Response Smoking Status Former smoker; Type: Cigarettes Assessment and Plan No data available for this section
--- OUTSIDE RECORDS SUMMARY | 2016-08-01 08:37 | XMS REPORT | Referral Summary ---
Author Author [facility], [facility] Organization [facility] Address Unknown Phone Unavailable Care Team Providers Care Crossing Tender Name Role Phone Xiomara Cabrales Primary Care Physician [phone] Encounter VC Date(s): 05/28/16 - 05/28/16 [facility] [place], [address] [place] [address]- Discharge Diagnosis: Knee pain, right Discharge Diagnosis: Hypertension Discharge Disposition: 01-Home or Self Care Attending Physician: Marcy Cabrales DO Admitting Physician: Marcy Cabrales DO Vital Signs Most recent to 1 oldest [Reference Range]: Temperature Tympanic 36.9 degC [36.6-38.1 degC] (05/28/16 8:13 AM) Peripheral Pulse 71 bpm Rate [60-100 bpm] (05/28/16 8:13 AM) Blood Pressure 116/78 mmHg [90-140/60-90 mmHg] (05/28/16 8:13 AM) SpO2 96 % (05/28/16 8:13 AM) Problem List Condition Effective Dates Status Health Status Informant Abnormal Pap smear Active of cervix(Confirmed) Anemia(Confirmed) Resolved Anxiety(Confirmed) Active Diabetes(Confirmed)1 Resolved Cough due to SADA Active inhibitor(Confirmed) Hypertension(Confirm Resolved ed) Inappropriate sinus Active tachycardia(Confirme [...] E11.9, # 100 Each, 0 Refill(s), Pharmacy: [facility] #[id number], Check blood sugar two times a day. DX: E11.9 Start Date: 12/13/15 Status: Ordered losartan 25 mg oral tablet 25 mg 1 tabs, Oral, Daily, # 90 tabs, 2 Refill(s), Pharmacy: [facility] # [id number], 1 tabs Oral Daily Start Date: 05/28/16 Status: Ordered metFORMIN 500 mg oral tablet, extended release See Instructions, TAKE ONE TABLET BY MOUTH DAILY WITH EVENING MEAL., # 90 tabs, eRx: [facility] #[id number] Start Date: 05/19/16 Status: Ordered nadolol 20 mg oral tablet 10 mg 0.5 tabs, Oral, Daily, # 15 tabs, 11 Refill(s), Pharmacy: [facility] #[id number], 0.5 tabs Oral Daily Start Date: 04/01/16 [...] to previous abnormal PAP 2repeat in 10 [id number] 3colonoscopy w/cancer surveillance showing no evidence for angiodysplastic lesions, polyps, diverticula, or malignancies. 4right [place] 5left 6left eye - retinal hole 7bilateral 8x2 Social History Social History Type Response Smoking Status Former smoker; Type: Cigarettes Assessment and Plan Extracted from: Title: Office Visit Note Author: Marcy Cabrales DO Date: 05/28/16 Assessment/Plan Hypertension Continue current regimen, we'll plan a BMPsince we've started the losartanand patient's history of hyperkalemia. She can do thisat her well woman examas she desires. Could also drawn A1c at that time if wanted. Ordered: Office Visit Level 4 Est 58459 Knee pain, right We talked about how important weight lossis as well as low impact exercises she can do to help with her knee pain. Patient will continue to work on this for now. Ordered: Office Visit Level 4 Est 10396
--- OUTSIDE RECORDS SUMMARY | 2016-08-01 08:37 | XMS REPORT | Referral Summary ---
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 Name Role Phone Xiomara Cabrales Primary Care Physician [phone] Encounter VC Date(s): 05/29/15 - 05/29/15 [facility] DEL[facility] Mckeon [place], [address] [place] [address]- Discharge Diagnosis: Abnormal Pap smear of cervix Discharge Diagnosis: Obesity Discharge Diagnosis: Anxiety Discharge Disposition: 01-Home or Self Care Attending Physician: Marcy Cabrales DO Admitting Physician: Marcy Cabrales DO Vital Signs Most recent to 1 oldest [Reference Range]: Peripheral Pulse 59 bpm Rate [60-100 bpm] *LOW* (05/29/15 8:50 AM) Respiratory Rate 18 br/min [14-20 br/min] (05/29/15 8:50 AM) Blood Pressure 118/80 mmHg [90-140/60-90 mmHg] (05/29/15 8:50 AM) SpO2 98 % (05/29/15 8:50 AM) Problem List Condition Effective Dates Status [...] TIMES A DAY, # 100 strip, eRx: [facility] #[id number], CHECK SUGARS TWO TIMES A DAY Start Date: 11/06/14 Status: Ordered Glucometer strips (DME) DME Item Contour Art One Test Strips - check blood sugar BID. DX: 250.00, See Instructions, # 100 Each, 0 Refill(s), Pharmacy: [facility] #[id number], Contour Art One Test Strips - check blood sugar BID. DX: 250.00, Supply Start Date: 06/27/14 Status: Ordered metFORMIN 500 mg oral tablet, extended release See Instructions, TAKE ONE TABLET BY MOUTH DAILY, WITH EVENING MEAL, # 90 tabs, 1 Refill(s), Pharmacy: [facility] #[id number], TAKE ONE TABLET BY MOUTH DAILY , WITH EVENING MEAL Start Date: 05/29/15 Status: Ordered Miscellaneous DME DME Item Art Contour Blood Glucose Monitoring System, See Instructions, # 1 Each, 0 Refill(s), Supply Start Date: 06/27/14 Status: Ordered nadolol 20 mg oral tablet See Instructions, TAKE ONE TABLET BY MOUTH EVERY DAY, # 30 tabs, 4 Refill(s), eRx: [facility] #[id number], TAKE ONE TABLET BY MOUTH EVERY DAY Start Date: 04/16/15 Status: Ordered Xanax 0.5 mg oral tablet See Instructions, as needed for anxiety, Take 1-2 tablets daily as needed., # 30 tabs, 0 Refill(s) Start Date: 05/29/15 Status: Ordered Results Chemistry Most recent to 1 oldest [Reference Range]: Sodium Lvl [135-144 136 mEq/L mEq/L] (05/29/15 10:00 AM) Potassium Lvl 4.9 mEq/L [3.5-5.2 mEq/L] (05/29/15 10:00 AM) Chloride [99-111 104 mEq/L mEq/L] (05/29/15 10:00 AM) CO2 [22-31 mEq/L] 26 mEq/L (05/29/15 10:00 AM) AGAP [3-20] 6 (05/29/15 10:00 AM) BUN [10-20 mg/dL] 19 mg/dL (05/29/15 10:00 AM) Glucose Lvl [70-99 125 mg/dL mg/dL] *HI* (05/29/15 10:00 AM) Creatinine Lvl 0.78 mg/dL [0.57-1.11 mg/dL] (05/29/15 10:00 AM) eGFR [>60 mL/min] >60 mL/min 1 (05/29/15 10:00 AM) Calcium Lvl 9.2 mg/dL [8.9-10.5 mg/dL] (05/29/15 10:00 AM) Hgb A1c [4.1-5.6 %] 5.8 % *HI* (05/29/15 10:00 AM) eAvg Glucose 119.8 mg/dL (05/29/15 10:00 AM) 1Result Comment: Multiply eGFR results by 1.21 for race. Immunizations Vaccine Date Refusal Reason influenza virus vaccine, inactivated 03/01/15 influenza virus vaccine, inactivated1 03/02/14 influenza virus vaccine, live 02/25/13 tetanus/diphtheria/pertussis, acel(Tdap) 06/01/12 tetanus-diphth toxoids (Td) adult/adol 11/27/97 zoster vaccine live 06/07/14 1Result Comment: [03/02/2014] See Scanned Document Procedures Procedure Date Related Diagnosis Body Site Collection of venous blood by venipuncture 05/29/15 Pap smear, as part of routine gynecological 05/19/12 examination1 D&C - Dilatation and curettage 2012 Hysteroscopy 2013 Colonoscopy2, 3 08/06/07 Hemiarthroplasty of head of humerus4 2005 Knee replacement5 2003 Laser surgery6 1995 Cholecystectomy 1991 Tubal ligation7 1979 delivery8 1had repeat PAP on 11-19-12 due to previous abnormal PAP 2repeat in 10 [id number] 3colonoscopy w/cancer surveillance showing no evidence for angiodysplastic lesions, polyps, diverticula, or malignancies. 4right [place] 5left 6left eye - retinal hole 7bilateral 8x2 Social History Social History Type Response Smoking Status Former smoker; Type: Cigarettes Assessment and Plan Extracted from: Title: Office Visit Note Author: Marcy Cabrales DO Date: 05/29/15 Assessment/Plan Abnormal Pap smear of cervix Schedule well woman with myself or Cheryl at patient's convenience. Anxiety We will start Xanax again. Patient signed a controlled substance agreement today. Return to clinic in 6 months. Ordered: Office Visit Level 4 Est 68935 Diabetes Patient will get an A1c. Further recommendations after results. We did discuss thebenefits of continuing metformin. Ordered: Hemoglobin A1c Office Visit Level 4 Est 30513 Hyperkalemia We will get a BMP today with further recommendations after results. Ordered: Basic Metabolic Panel Office Visit Level 4 Est 03251 Obesity Discussed healthy ways to lose weight today. Ordered: Office Visit Level 4 Est 19500 Orders: ALPRAZolam, See Instructions, as needed for anxiety, Take 1-2 tablets daily as needed., # 30 tabs, 0 Refill(s) metFORMIN, See Instructions, TAKE ONE TABLET BY MOUTH DAILY, WITH EVENING MEAL , # 90 tabs, 1 Refill(s), Pharmacy: [facility] #[id number], TAKE ONE TABLET BY MOUTH DAILY, WITH EVENING MEAL MG Mammogram Routine Screening Bilat
--- OUTSIDE RECORDS SUMMARY | 2016-08-01 08:37 | XMS REPORT | Referral Summary ---
Author Organization Unknown Address Unknown Phone Unavailable Care Team Providers Care Electrician Third Name Role Phone Isrrael Timmons Primary Care Physician [phone] Encounter VC Date(s): 06/07/14 - 06/07/14 [facility] Mc[facility]on, Luis Armando, Family Medicine [address] [place] [address] Dr Durán [place] [id number] Discharge Diagnosis: Diabetes Discharge Diagnosis: Well female exam with routine gynecological exam Discharge Diagnosis: Encounter for Zostavax administration Discharge Disposition: Home or Self Care Attending Physician: Cheryl Vargas APRN Admitting Physician: Cheryl Vargas APRN Vital Signs Most recent to 1 oldest [Reference Range]: Peripheral Pulse 82 bpm Rate [60-100 bpm] (06/07/14 8:40 AM) Blood Pressure 128/72 mmHg [90-140/60-90 mmHg] (06/07/14 8:40 AM) Problem List Condition Effective Dates Status [...] See Instructions, # 100 Each, 0 Refill(s), Supply Special Instructions: Contour Art One Test Strips - check blood sugar BID. DX : 250.00 Start Date: 10/27/13 Status: Ordered nadolol 20 mg oral tablet See Instructions, TAKE ONE-HALF TABLET BY MOUTH EVERY DAY, # 30 tabs, 5 Refill(s ), eRx: [facility] #[id number], TAKE ONE TABLET BY MOUTH EVERY DAY Special Instructions: TAKE ONE-HALF TABLET BY MOUTH EVERY DAY Start Date: 05/24/14 Status: Ordered Xanax 0.5 mg oral tablet See Instructions, as needed for anxiety, Take 1-2 tablets daily as needed., # 30 tabs, 0 Refill(s) Special Instructions: Take 1-2 tablets daily as needed. Start Date: 06/07/14 Status: Ordered Results Chemistry Most recent to 1 oldest [Reference Range]: Sodium Lvl [135-144 140 mEq/L mEq/L] (06/07/14 9:49 AM) Potassium Lvl 5.4 mEq/L [3.5-5.2 mEq/L] *HI* (06/07/14 9:49 AM) Chloride [99-111 107 mEq/L mEq/L] (06/07/14 9:49 AM) CO2 [22-31 mEq/L] 25 mEq/L (06/07/14 9:49 AM) AGAP [3-20] 8 (06/07/14 9:49 AM) BUN [10-20 mg/dL] 20 mg/dL (06/07/14 9:49 AM) Glucose Lvl [70-99 138 mg/dL mg/dL] *HI* (06/07/14 9:49 AM) Creatinine Lvl 0.74 mg/dL [0.57-1.11 mg/dL] (06/07/14 9:49 AM) eGFR [>60 mL/min] >60 mL/min 1 (06/07/14 9:49 AM) Calcium Lvl 9.6 mg/dL [8.9-10.5 mg/dL] (06/07/14 9:49 AM) Albumin Lvl [3.4-4.8 4.2 gm/dL gm/dL] (06/07/14 9:49 AM) Total Protein 7.1 gm/dL [6.2-8.1 gm/dL] (06/07/14 9:49 AM) Globulin [1.8-4.0 2.9 gm/dL gm/dL] (06/07/14 9:49 AM) ALT [0-55 unit/L] 40 unit/L (06/07/14 9:49 AM) AST [5-34 unit/L] 31 unit/L (06/07/14 9:49 AM) Alk Phos [40-150 75 unit/L unit/L] (06/07/14 9:49 AM) Bili Total [0.2-1.2 0.6 mg/dL mg/dL] (06/07/14 9:49 AM) Chol [0-199 mg/dL] 194 mg/dL (06/07/14 9:49 AM) Trig [0-149 mg/dL] 109 mg/dL (06/07/14 9:49 AM) HDL [40-84 mg/dL] 38 mg/dL *LOW* (06/07/14 9:49 AM) LDL [0-130 mg/dL] 134 mg/dL *HI* (06/07/14 9:49 AM) VLDL Cholesterol 22 mg/dL [0-28 mg/dL] (06/07/14 9:49 AM) Cardiac Risk 5.1 [0.0-5.0] *HI* (06/07/14 9:49 AM) Hgb A1c [4.1-5.6 %] 6.0 % *HI* (06/07/14 9:49 AM) eAvg Glucose 125.5 mg/dL (06/07/14 9:49 AM) 1Result Comment: Multiply eGFR results by 1.21 for race. Immunizations Vaccine Date Refusal Reason influenza virus vaccine, inactivated1 03/02/14 influenza virus vaccine, live 02/25/13 tetanus/diphtheria/pertussis, acel(Tdap) 06/01/12 tetanus-diphth toxoids (Td) adult/adol 11/27/97 zoster vaccine live 06/07/14 1Result Comment: [03/02/2014] See Scanned Document Procedures Procedure Date Related Diagnosis Body Site Collection of venous blood by venipuncture 06/07/14 Pap smear, as part of routine gynecological 05/19/12 examination1 D&C - Dilatation and curettage 2012 Hysteroscopy 2013 Colonoscopy2, 3 08/06/07 Hemiarthroplasty of head of humerus4 2005 Knee replacement5 2003 Laser surgery6 1995 Cholecystectomy 1991 Tubal ligation7 1978 delivery8 1had repeat PAP on 8-2-13 due to previous abnormal PAP 2repeat in 10 [id number] 3colonoscopy w/cancer surveillance showing no evidence for angiodysplastic lesions, polyps, diverticula, or malignancies. 4right [place] 5left 6left eye - retinal hole 7bilateral 8x2 Social History Social History Type Response Smoking Status Former smoker; Type: Cigarettes Assessment and Plan No data available for this section
--- OUTSIDE RECORDS SUMMARY | 2016-08-01 08:37 | XMS REPORT | Continuity of Care Document ---
Author Author Iain OCAMPO, Joe MOLINA Organization Ambulatory Address [address] [place] [address] Phone Care Team Providers Care Pc Maintenance Technician Name Role Phone Joe Timmons PP Unavailable Payers Payer name Insurance type Covered libertarian ID Authorization(s) Unknown Problems Condition Effective Dates (start - stop) Clinical Status Diabetes Mellitus Type 2, Uncomplicated - *Chronic Cardiac dysrhythmia, unspecified - Episodic Obesity - *Chronic Bronchitis, Acute - Acute Papanicolaou smear of cervix with atypical squamous cells of undetermined significance (ASC-US) - *Resolved Atrial tachycardia - Episodic Palpitations - Episodic Anxiety disorder - *Chronic RBBB - Inappropriate sinus tachycardia - *Stable PAC (premature atrial contraction) - Episodic Palpitations - Episodic RBBB - *Chronic Influenza Vaccine - Cardiac dysrhythmia, unspecified - Episodic Obesity - *Chronic Diabetes Mellitus Type 2, Uncomplicated - *Chronic Post OP visit - *Stable ASCUS (atypical squamous cells of undetermined sig - *Routine Abnormal finding on Pap smear, ASCUS - Atypical NEED FOR PROPHYLACTIC VACCINATION WITH COMBINED [id number] ( DTP) (DTAP) VACCINE - DMII WO CMP NT ST UNCNTR - ANEMIA NOS - BENIGN HYPERTENSION - 490 - BRONCHITIS NOS - OSTEOARTHROS NOS-L/LEG - PALPITATIONS - ELEV TRANSAMINASE/LDH - AB MAMMOGRAM NOS - Gynecological Examination - *Routine Family History Family Member Diagnosis Age At Onset Status brother 4 (Unknown) Alive and well (Unknown) Brother #3 (Unknown) Chronic pancreatitis Yes Father (Unknown) Renal failure Yes Maternal grandmother (Unknown) Cancer - renal Yes Father (Unknown) Hypertension Yes Mother (Unknown) Cancer - breast Yes sister 2 (Unknown) Alive and well (Unknown) sister 1 (Unknown) Alive and well (Unknown) Father () Congestive heart failure Yes Brother #1 (Alive) Heart disease Yes Brother #1 (Alive) lau parkinson white disease (cause of ) Yes Brother #2 (Unknown) Biliary atresia Yes Father (Unknown) COPD Yes Social History Social History Element Description Quantity alcohol wine & liquor Allergies, Adverse Reactions, Alerts Substance Reaction Severity Status Unknown Medications Medication Instructions Dosage Effective Dates (start - stop) Status chew 2 Tablet (162MG) by oral route every day 162 MG - Active One Touch Ultra Test strips place 1 by stick route 1 - 2 times every day or as directed by physician. Dx: 250.00. 0 - Active One Touch Ultra Test strips CHECK BS DAILY. DX: 250.00 - Active Xanax 0.5 mg tablet take 1-2 tablets daily as needed - Active nadolol 20 mg tablet take 1/2 Tablet (10MG) by oral route every day 10 MG - Active Immunizations Vaccine Date Status Comments Flu (split) (3 yrs or older) completed Tdap (Boostrix r) completed Td (adult) completed - Completed reason: source unspecified Results Test Name Date and Time Measure Units Reference Range Abnormal Flag Comments Unknown Vital Signs Date / Time: Height Weight Pulse Rate Blood Pressure Temperature /13:15:00 65.50 in 253.00 lbs 76 /min 114/76 mm[Hg] 98.8 F Procedures Procedure Date Unknown Encounters Encounter Location Date Patient Visit [facility] Patient Visit [facility] [place] Patient Visit [facility] Patient Visit [facility] Patient Visit [facility] New OB Patient Visit [facility] Mur Card Patient Visit [facility] Mur Card Patient Visit [facility] Mur Card Patient Visit [facility] New IM Patient Visit [facility] New OB Patient Visit [facility] OB Patient Visit [facility] FM Patient Visit Conversion Patient Visit [facility] FM Patient Visit [facility] Advance Directives Directive Effective Date Unknown
--- NOTE | 2016-08-01 08:46 | NUR ---
PROVIDER DR. CROSS IN ROOM WITH PT.
[2016-08-01] MEDS ORDERED: METF500T4 PO (08:48)
[2016-08-01] MEDS ORDERED: LOSARTIN PO (08:49)
[2016-08-01] MEDS ORDERED: ASPI-557 PO (08:50)
--- NOTE | 2016-08-01 08:58 | ERPDOC ---
Departure Disposition Decision Date: Aug 01, 2016 Disposition Decision Time: 10:21 Disposition: 01 DISCHARGED HOME, SELF-CARE Impression Impression Impression: Primary Impression: DVT (deep venous thrombosis) DVT location: lower extremity Affected thrombotic vein of extremity: popliteal Laterality: right Chronicity: acute Qualified Codes: I82.431 - Acute embolism and thrombosis of right popliteal vein Severity: Moderate Condition: Improved Seen By: Physician only Referrals: MARCY OROZCO DO (Family) 2 Days Patient Instructions: [facility] [place] Discharge Instructions Problems/Meds/Labs Reviewed?: Yes Medications reviewed and manag: Yes Follow up care ordered?: Yes Mental Status: Alert, Oriented Scripts Rivaroxaban (Xarelto) 15 Mg Tablet 15 MG PO BIDWM for 21 Days, #42 TAB 0 Refills Take 1 tablet, by mouth, 2 times a day with meals. Prov: BUBBA CROSS DO 08/01/16 Cyclobenzaprine HCl (Cyclobenzaprine HCl) 10 Mg Tablet 5 MG PO TID Y for MUSCLE SPASM for 5 Days, #8 TAB 0 Refills Prov: BUBBA CROSS DO 08/01/16 Hydrocodone/Acetaminophen ([place] 5-325 Tablet) 5-325 Tablet 1 TAB PO Q4HR Y for PAIN for 3 Days, #18 TAB 0 Refills Prov: BUBBA CROSS DO 08/01/16 HPI - General Medical General Chief Complaint: Low Back Pain or Injury Stated Complaint: LOW BACK PAIN Time Seen by Provider: 08:37 Source: patient Exam Limitations: no limitations HPI - General Medical Initial Comments 61-year-old female with a history of sciatica presents to the emergency department with a chief complaint of pain radiating from her lower back to her toes on her right lower extremity. Patient's symptoms began yesterday. 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 Patient describes her pain as moderate in nature. Pain is sharp. Pain increases with ambulation and movement and improves with rest and analgesia. Patient denies any other complaints or associated symptoms. This is a typical exacerbation of sciatica for the patient. There are no other complaints or associated symptoms. She was at home when her symptoms began. Symptoms have been persistent in nature since onset. The symptoms have had a gradual progression nature. Patient denies any numbness, tingling, fever, chills, saddle and testes are, focal weakness, loss of bowel or bladder control, anticoagulation, IV drug abuse , abdominal pain or recent procedures on the spine. She denies any other warning signs of back pain. Occurred At: home Onset: Gradual Allergies: Coded Allergies: No Known Allergies (Verified , 08/01/16) Past History Past Medical History Metabolic: hypertension Musculoskeletal: back pain Surgical History Joint: knee Family History Family History: Negative Social History Smoking Status: Never smoker Substance Use Type: does not use Alcohol Intake: none Review of Systems Constitutional Constitutional: DENIES: chills, fever Eyes General: DENIES: erythema, exudate Lids/Accessories: DENIES: erythema, swelling Vision: DENIES: acuity, blurring ENMT Ears: DENIES: drainage, erythema Hearing: DENIES: hearing loss Balance: DENIES: ataxia, falling to one side Sinuses: DENIES: congestion, pain Nose: DENIES: nosebleeds, pain Mouth/Throat: DENIES: painful swallowing, sore throat Teeth: DENIES: pain Jaw: DENIES: pain Cardiovascular Cardiac: DENIES: chest pain, dyspnea on exertion Rhythm/Rate: DENIES: irregular beat, palpitations Vascular: DENIES: pedal edema, unilateral swelling Pulmonary Respiratory: DENIES: cough, dyspnea, pleuritic chest pain, sputum GI Upper Abdomen: DENIES: nausea, pain, vomiting Lower Abdomen: DENIES: diarrhea, pain General: DENIES: dysuria, frequency Musculoskeletal General: tenderness, DENIES: joint pain Integumentary Skin: DENIES: itching, rash Neurological General: DENIES: headache, numbness, weakness Psychiatric Psychiatric: DENIES: emotional instability, suicidal ideation/attempt Endocrine Endocrine: DENIES: polydipsia, polyphagia Hematologic/Lymphatic Hematologic/Lymphatic: DENIES: frequent nosebleeds, lymphadenopathy Allergic/Immunological Allergic/Immunoligical: DENIES: allergic reactions, hives Physical Exam General General Nourishment: well nourished, well developed, appears stated age, no acute distress, adult General Body Habitus: well groomed Vitals and Pain First Documented Vital Signs Date Time Temp Pulse Resp B/P Pulse Ox O2 Delivery O2 Flow Rate FiO2 08/01/16 08:35 97.5 68 18 143/69 94 Room Air Weight: Kilograms: 113.500 Height (feet): 5 Height (inches): 6.00 Triage Pain Scale: RN VS reviewed by Provider: Yes Normal Exams: Head: Normocephalic w/o trauma Eyes: Pupils are PERRLA w/ EOMI, No scleral icterus, irritation, or foreign bodies noted ENMT: No facial trauma, nasal exudates, pharyngeal erythema, or exudates are noted Dental: No fractured, loose, or missing teeth noted Neck: Full range of motion, without adenopathy, JVD, bruits or thyromegaly Chest/Resp: Clear all [place], with good airflow, and symmetry bilaterally CV: Regular rate and rhythm, without murmur or gallop, Pulses 2+ all extremities, capillary refill, <2 seconds all ext., no pedal edema noted Abdomen: Bowel sounds positive, soft, non-tender, non-distended, no hepatosplenomegaly, masses or bruits noted Lymphatic: No lymphadenopathy, or lymphedema noted Musculoskeletal: No tenderness, or deformity noted, good range of motion, all extremities Integumentary: No rashes, hives, or bruising noted, hair and nails, without abnormality Neurologic: Patient is alert, and oriented, cranial nerves, motor/sensory/ cerebellar, exams w/o gross deficits, to observation Psychiatric: Patient exhibits, appropriate attention, emotion and affect Musculoskeletal (brief) Comments Back - no midline tenderness or deformity of the cervical/thoracic/lumbar spine. Positive tenderness to palpation to the right SI joint. Neurologic (brief) Comments Alert and oriented x 4. CN 2-12 intact. Normal Sensation. Normal gait. Normal speech. Normal motor. Normal coordination. Reflexes 2/4 in all extremities. Absent Babinski bilaterally. No focal neurological deficit. unremarkable neurological exam. Differential Diagnoses Considering: Other (chronic back pain/sciatica/DVT/muscle spasm) Progress Results/Orders Orders Procedure Category Date Status Time Us Venous Duplex, US 08/01/16 Resulted Lower Ext Rt 08:53 Lumbar Spine 2-3 Views RAD 08/01/16 Resulted 08:53 Cbc W/Auto LAB 08/01/16 Complete Diff-Reflex Manual Bmp - Basic Metabolic LAB 08/01/16 Complete Panel Rivaroxaban (Xarelto) PHA 08/01/16 Complete 10:30 Acetaminophen PHA 08/01/16 Complete (Tylenol Extra 10:30 Lab Results Laboratory Tests Test 08/01/16 09:48 White Blood Count 6.2T/MM3 Red Blood Count 4.22M/MM3 Hemoglobin 13.5GM/DL Hematocrit 39.5% Mean Corpuscular Volume 93.6UM3 Mean Corpuscular Hemoglobin 32.0UUG Mean Corpuscular Hemoglobin Concent 34.2GM/DL RDW Standard Deviation 40.4FL Platelet Count 207T/MM3 Mean Platelet Volume 9.9UM3 Immature Granulocyte % (Auto) 0.3% Neutrophils (%) (Auto) 66.4% Lymphocytes (%) (Auto) 25.2% Monocytes (%) (Auto) 4.4% Eosinophils (%) (Auto) 3.2% Basophils (%) (Auto) 0.5% Absolute Immature Granulocyte (auto 0.02T/MM3 Absolute Neutrophils (auto) 4.1T/MM3 Absolute Lymphocytes (auto) 1.6T/MM3 Absolute Monocytes (auto) 0.3T/MM3 Absolute Eosinophils (auto) 0.2T/MM3 Absolute Basophils (auto) 0.0T/MM3 Turbidity < 20 Sodium Level 145MEQ/L Potassium Level 4.0MEQ/L Chloride Level 107MEQ/L Carbon Dioxide Level 25MEQ/L Anion Gap 13MEQ/L Blood Urea Nitrogen 19.0MG/DL Creatinine 0.7MG/DL Glomerular Filtration Rate Calc 85 BUN/Creatinine Ratio 27RATIO Glucose Level 144MG/DL Calculated Osmolality 284MOSM/KG Calcium Level 9.1MG/DL Icterus Index < 2 Chemistry Specimen Hemolysis < 15 Medications Current ED Medications Rivaroxaban (Xarelto) 15 mg O ONCE PO ; Start 08/01/16 at 10:30; Stop 08/01/16 at 10:32; Status DC Acetaminophen (Tylenol Extra Strength) 1,000 mg O ONCE PO ; Start 08/01/16 at 10:30; Stop 08/01/16 at 10:32; Status DC Progress Progress Labs / imaging were discussed in detail with the patient and questions are answered. Patient does not have any history of ALLERGIES or bleeding disorder. There is no recent blood in stool. Patient will be started on Xarelto for treatment of DVT. There is no chest pain or shortness of breath. Patient has no other symptoms or complaints. Patient is discharged home in improved condition. She is to follow up as instructed. Patient is to return to the emergency Department if her condition worsens or changes in any manner. Patient is in agreement with the current plan of management. Rx for xarelto is provided. Patient was also given an Rx for norco / flexeril. Patient is discussed with her primary care physician ( Dr. Marcy Orozco) who is in agreement with the current plan of management. Close follow-up is obtained for the patient with her primary care physician. Patient was given acetaminophen in the emergency department with improvement of symptoms. She is discharged home in improved condition. She is in agreement with the current plan of management. Patient was started on Xarelto in the ED with the first dose provided. Xray Xray : Xray: L-Spine Interpretation: Normal, Reviewed Written Report Ultrasound US : Ultrasound: Venous Doppler Interpretation: Abnormal, Reviewed Written Report (small amount of popliteal DVT. Non-occlusive.) BUBBA CROSS DO Aug 01, 2016 08:58
--- NOTE | 2016-08-01 09:03 | NUR ---
ULTRASOUND US IN ROOM WITH PT.
--- NOTE | 2016-08-01 09:21 | NUR ---
US US COMPLETED.
--- NOTE | 2016-08-01 09:30 | NUR ---
XRAY PT TO XRAY PER COT.
--- NOTE | 2016-08-01 09:30 | DI ---
Indication: ITS.REASON: Right knee pain PROCEDURE: US VENOUS DUPLEX, LOWER EXT RT: Encounter: Initial Comparison: None Technique: Color Doppler duplex and grayscale sonographic imaging of the right lower extremity was performed. Findings: Small amount of nonocclusive DVT in the distal popliteal vein. No additional areas of DVT identified. Specifically, serial graded compression was performed from the inguinal ligament to the popliteal bifurcation, on the right thigh, demonstrating appropriate compressibility of the remaining deep venous system. In addition, color and pulsed Doppler demonstrate appropriate spontaneous flow, variation with respiration, and augmentation with calf compression. At the ankle, normal flow is identified in the posterior tibial veins; these vessels are also normal in caliber. Impression: Small amount of nonocclusive right popliteal DVT. .
--- NOTE | 2016-08-01 09:37 | NUR ---
XRAY PT RETURNED FROM XRAY
--- NOTE | 2016-08-01 09:48 | DI ---
Indication: ITS.REASON: pain PROCEDURE: LUMBAR SPINE 3 VIEWS: Encounter: Initial Comparison: None Findings: Alignment of the lumbar spine is within normal limits. No acute fracture or subluxation identified. Mild disk space narrowing at L5-S1 with degenerative facet change. Cholecystectomy clips. Moderate stool in the colon. There is chronic appearing minimal wedging of the L5 and L2 vertebra. Impression: No acute osseous abnormality. .
[2016-08-01 09:55] LABS: BASOPHILS % (AUTO) 0.5 % (0-2); EOSINOPHILS # (AUTO) 0.2 T/MM3 (0-0.5); EOSINOPHILS % (AUTO) 3.2 % (0-4); HCT - HEMATOCRIT 39.5 % (36-46); HGB - HEMOGLOBIN 13.5 GM/DL (12-16); IMMATURE GRANULOCYTE # (AUTO) 0.02 T/MM3 (0.00-0.03); IMMATURE GRANULOCYTE % (AUTO) 0.3 % (0.0-0.5); LYMPHOCYTES # (AUTO) 1.6 T/MM3 (1-4.8); LYMPHOCYTES % (AUTO) 25.2 % (23-45); MEAN CORPUSCULAR HGB CONC(MCHC 34.2 GM/DL (31-37); MEAN CORPUSCULAR VOLUME 93.6 UM3 (80-100); MEAN PLATELET VOLUME 9.9 UM3 (9.4-12.4); MONOCYTES # (AUTO) 0.3 T/MM3 (0-0.8); MONOCYTES % (AUTO) 4.4 % (0-9.0); NEUTROPHILS #(AUTO)-ABSOLUTE 4.1 T/MM3 (1.8-7.7); NEUTROPHILS % (AUTO) 66.4 % (33-66); RED BLOOD COUNT 4.22 M/MM3 (4.00-5.20); WBC - WHITE BLOOD COUNT 6.2 T/MM3 (4.5-11.0)
[2016-08-01 10:04] LABS: ANION GAP 13 MEQ/L (5-15); BUN/CREATININE RATIO 27 RATIO (6-26); CALCIUM 9.1 MG/DL (8.4-10.2); CHLORIDE 107 MEQ/L (98-107); CO2 - CARBON DIOXIDE 25 MEQ/L (22-30); CREATININE 0.7 MG/DL (0.7-1.2); GLOMERULAR FILTRATION RATE 85; GLUCOSE 144 MG/DL (65-110); SODIUM 145 MEQ/L (134-144)
[2016-08-01] MEDS ORDERED: HYDR-4246 PO (10:29)
[2016-08-01] MEDS ORDERED: CYCL-375 PO (10:29)
[2016-08-01] MEDS ORDERED: RIVA15TA PO (10:29)
[2016-08-01] MEDS ORDERED: ACETAMINOPHEN 500 MG TABLET PO ONE (10:30)
[2016-08-01] MEDS ORDERED: RIVAROXABAN 15 MG TABLET PO ONE (10:30)
[2016-08-01 11:02] VITALS: BP 146/68; PULSE 78; RESP 16; TEMP 98.2; O2SAT 100
== END 2016-08-01 11:02 | disposition home or self-care (01) ==
LOC: ED 08:33
DX: I82.431 Acute embolism and thrombosis of right popliteal vein (principal)
CPT/HCPCS: 36415; 80048; 85025